=== PATIENT | male | born 1935 | race Caucasian/White ===

== ENCOUNTER 2022-03-07 14:13 | Emergency (ER) | payer OTHER, SELFPAY ==
[2022-03-07 14:50] VITALS: BP 149/68; PULSE 89; RESP 16; TEMP 36.9; O2SAT 97
--- NOTE | 2022-03-07 15:06 | ED.URI ---
HPI - URI/Sore Throat General Chief Complaint: Upper Respiratory Infection Stated Complaint: cold sx Time Seen by Provider: 03/07/22 15:06 Source: patient, RN notes reviewed and old records reviewed Mode of arrival: ambulatory Limitations: no limitations History of Present Illness HPI Narrative: 87-[facility] was complaints of sinus congestion since Wednesday night, 3 days. Has taken Mucinex 1 time. Patient is worried that it is going to move into his lungs. Patient reports that he has had his flu vaccine and COVID vaccine. Denies any fevers. Related Data Home Medications Medication Instructions Recorded Confirmed albuterol sulfate 90 mcg/actuation 2 puff inhalation Q4HWA PRN sob 03/07/22 03/07/22 aerosol inhaler metoprolol succinate 25 mg 25 mg PO DAILY 03/07/22 03/07/22 tablet,extended release 24 hr spironolactone 50 mg tablet 50 mg PO DAILY 03/07/22 03/07/22 testosterone cypionate 200 mg/mL See Rx Instructions .Route .COMPLEX 03/07/22 03/07/22 intramuscular oil Allergies Allergy/AdvReac Type Severity Reaction Status Date / Time No Known Allergies Allergy Verified 03/07/22 15:11 Review of Systems Review of Systems: All systems reviewed & are unremarkable except as noted in HPI and below Constitutional: Constitutional: Reports no additional constitutional complaints Eyes: Eyes: Reports no additional eye complaints ENT: Reports as per HPI and Reports nasal congestion Cardiovascular: Cardiovascular: Reports no additional cardiovascular complaints, Denies chest pain and Denies dyspnea Respiratory: Respiratory: Reports no additional respiratory complaints, Denies chest congestion, Denies cough and Denies dyspnea Gastrointestinal: Gastrointestinal: Reports no additional gastrointestinal complaints, Denies abdominal pain, Denies nausea and Denies vomiting Musculoskeletal: Musculoskeletal: Reports no additional musculoskeletal complaints Integumentary/Breasts: Skin/Breast: Reports system reviewed and no additional complaints, except as docu Neurologic: Reports system reviewed and no additional complaints, except as documented Psychiatric: Psychiatric: Reports no additional psychiatric complaints Allergic/Immunologic: Allergic/Immunologic: Reports no additional allergic/immunologic complaints [facility] Past Medical History Medical History (Updated 03/07/22 @ 15:35 by Franci Hummel, SUMMER) History of high blood pressure Comments At the time of my signature, I reviewed and agree with the nursing past medical, surgical, social, and family history. There is no relevant family history pertinent to the patient complaint. Exam Const: General: cooperative, comfortable, no acute distress, well developed, alert, ill appearing chronically and well nourished Nutritional Appearance: well nourished and obese Orientation/consciousness: patient oriented x3 Limitations: no limitations Other: Appears mildly acute on chronic illness. HENMT: Head: normal to inspection Ears: hearing grossly normal bilaterally, external ears normal and TM's normal bilaterally Face/Nose/Sinus: Normal external nose present, Normal nares present, Normal nasal mucous membranes and turbinates present and normal facial exam Face and sinus: normal facial exam Mouth: Yes Normal oral and palatal mucosa present, Yes lip normal and Yes moist mucous membranes Throat: posterior oropharynx normal and uvula midline Eyes: General: appearance normal, both eyes and all related structures Alignment and Position: alignment normal Periorbital: periorbital findings normal Conjunctivae: conjunctivae normal Pupils: Equal, round and reactive pupils present EOM: EOMs intact bilaterally Neck: Neck: normal visual inspection, full ROM, no lymphadenopathy and no meningeal signs Chest: Chest palpation & inspection: normal inspection of the chest Resp: Effort & Inspection: normal respiratory effort and able to speak in compl
== END 2022-03-07 15:48 | disposition home or self-care (01) ==
PROVIDERS: Emergency Provider Nurse Practitioner
DX: U07.1 COVID-19 (principal); I10 Essential (primary) hypertension
CPT/HCPCS: 87426; 87804; 99213; C9803; G0463